=== PATIENT | male | born 1955 | race Caucasian/White ===

== ENCOUNTER 2016-08-24 18:44 | Emergency (ER) | payer BC ==
[~2016-08-24] VITALS: Ht 172.7 cm; Wt 82.7 kg
[~2016-08-24 18:44] MED LIST: ADVIL200 MG PO; EXCEDRIN1 TAB PO; LEVOXYL0.075 MG PO; PRAVACHOL 20MG20 MG PO; VOLTAREN-XR100 MG PO
[2016-08-24 18:48] VITALS: BP 177/95; TEMP 100.8
[2016-08-24 19:31] LABS: INFLUENZA B NEGATIVE
[2016-08-24] MEDS ORDERED: ZOFRAN 4MG T4 MG/TAB PO (19:55)
[2016-08-24] MEDS ORDERED: ZITHROMAX 250M250 MG PO (19:55)
[2016-08-24] MEDS ORDERED: TAMIFLU 75MG75 MG PO (19:55)
[2016-08-24] MEDS ORDERED: NORCO 325 MG-51 TAB PO (19:55)
[2016-08-24 20:13] VITALS: PULSE 94
== END 2016-08-24 20:14 | disposition home or self-care (01) ==
LOC: COL.ER 18:44
PROVIDERS: Emergency Medicine
DX: J20.9 Acute bronchitis, unspecified (principal)

== ENCOUNTER 2019-06-12 13:44 | Emergency (ER) | payer BC ==
[~2019-06-12] VITALS: Ht 172.7 cm; Wt 84.1 kg
[~2019-06-12 13:44] MED LIST changes: +NORCO 325 MG-51 TAB PO; +TAMIFLU 75MG75 MG PO; +ZITHROMAX 250M250 MG PO; +ZOFRAN 4MG T4 MG/TAB PO
[2019-06-12] MEDS ORDERED: PRINIVIL10 MG PO (14:05)
[2019-06-12 14:38] LABS: BASO # 0.1 (0.0-0.2); BASO % 0.4 % (0.0-2.0); EOS # 0.2 (0.0-0.7); EOS % 1.3 % (0-4.0); GRAN % 85.2 % (42.2-75.2); HEMATOCRIT 43.1 % (42.0-52.0); HEMOGLOBIN 13.9 g/dl (13.5-18.0); LYMPH % 6.3 % (20.0-51.0); MEAN CELL VOLUME 80 fl (80.0-100.0); MEAN CORPUSCULAR HEMOGLOBIN 26 pg (27.0-31.0); MEAN CORPUSCULAR HGB CONC 32 g/dl (33.0-37.0); MEAN PLATELET VOLUME 9.2 fl (7.4-10.4); MONO % 6.3 % (1.7-9.3); PLATELET COUNT 384 K/mm3 (130-400); RED BLOOD COUNT 5.37 M/mm3 (4.20-5.60); REDCELL DISTRIBUTION WIDTH-CV 13.2 % (11.5-14.5)
--- NOTE | 2019-06-12 14:40 | NUR ---
Initial visit with patient's : Clinical Research Physician offered support and Spiritual Care to patient's while Conner was undergoing examination and tests in the Emergency Room.
[2019-06-12 14:44] LABS: COLLECTION METHOD CLEAN CATCH
[2019-06-12 14:50] LABS: ALANINE AMINOTRANSFERASE 35 U/L (21-72); ALBUMIN 4.5 gm/dL (3.5-5.0); ALKALINE PHOSPHATASE 74 U/L (50-136); ANION GAP 9 mmol/L (7-16); AST,SGOT 32 U/L (15-37); BILIRUBIN,TOTAL 0.4 mg/dL (0.0-1.0); BLOOD UREA NITROGEN 25 mg/dL (9-20); C-REACTIVE PROTEIN 0.7 mg/dL (0.0-0.9); CARBON DIOXIDE 26 mmol/L (22-30); CHLORIDE 103 mmol/L (98-107); CREATININE, serum 1.21 (0.66-1.25); GLUCOSE 124 mg/dL (74-106); POTASSIUM 4.9 mmol/L (3.4-5.0); SODIUM 138 mmol/L (137-145); TOTAL PROTEIN 7.6 gm/dL (6.4-8.2)
[2019-06-12 14:53] LABS: MUCOUS Present /lpf; PH 5 (5-8); SQUAMOUS EPITHELIAL 0-2 /hpf; URINE APPEARANCE Hazy; URINE BACTERIA None Seen /hpf; URINE BILIRUBIN Negative (NEGATIVE); URINE BLOOD Negative (NEGATIVE); URINE COLOR Yellow; URINE GLUCOSE Negative (NEGATIVE); URINE KETONE Negative (NEGATIVE); URINE LEUKOCYTE ESTERASE Negative (NEGATIVE); URINE NITRATE Negative (NEGATIVE); URINE PROTEIN(semi-quant) Negative (NEGATIVE); URINE RBC 0-2 /hpf; URINE UROBILINOGEN Negative (NEGATIVE)
[2019-06-12 14:59] LABS: TROPONIN-I < 0.012 ng/mL (0.000-0.035)
[2019-06-12 15:40] VITALS: BP 111/71; PULSE 84; TEMP 97.7
== END 2019-06-12 15:40 | disposition home or self-care (01) ==
LOC: COL.ER 13:44
PROVIDERS: Physician Assistant
DX: R55 Syncope and collapse (principal); E78.5 Hyperlipidemia, unspecified; I10 Essential (primary) hypertension; Z87.442 Personal history of urinary calculi

== ENCOUNTER 2020-07-27 14:41 | Inpatient (IN) | payer BC ==
[~2020-07-27] VITALS: Ht 172.8 cm; Wt 90.2 kg
[~2020-07-27 14:41] MED LIST changes: +PRINIVIL10 MG PO
--- NOTE | 2020-09-01 20:00 | NUR ---
Pt. sitting up in bed. Pt. is A&OX3, assessment complete. IV to lt. hand patent, IV fluids infusing per orders. Dressing to lt. knee CDI. Pt. reports pain at a 4. Gave pain meds per orders. Pt. denies further needs, call light within reach.
[2020-09-02] VITALS: BP 133/83; PULSE 93; TEMP 98
[2020-09-02 05:21] VITALS: BP 133/76; PULSE 86; TEMP 97.6
[2020-09-02 06:47] LABS: HEMATOCRIT 37.6 % (42.0-52.0); HEMOGLOBIN 12.3 g/dl (13.5-18.0)
[2020-09-02 07:36] VITALS: BP 135/80; PULSE 84; TEMP 98.3
--- NOTE | 2020-09-02 10:30 | NUR ---
Patient is doing well this morning. Needs reminders to do his leg exercises in bed and where to place his pillow. Student nurse is caring for patient and assisting him with his cares. Patients pain has been well controlled today. No complaints of nausea. Dressing to right knee is C/D/I, some edema to left knee, no pitting. Dressing changed to aqacell by student nurse. No other changes at this time. Call light within reach.
[2020-09-02 12:09] VITALS: BP 146/69; PULSE 95; TEMP 97.7
--- NOTE | 2020-09-02 13:06 | NUR ---
First visit from the java support engineer. No needs right now.
--- NOTE | 2020-09-02 13:38 | NUR ---
SW met with the patient to discuss discharge plan. The patient lives in [place] with his , Clover (ph#[phone]). He reports independence with ADLs and has a cane and walker. The patient's PCP is Dr. Anabel Mcghee and [facility] He reports no difficulties obtaining his meds. The patient does not have a DPOA-HC in EMR, but he states that he does have one completed and that it designates his . The patient plans to return home with his and receive outpatient PT at [facility] upon discharge. No additional needs at this time.
--- NOTE | 2020-09-02 13:50 | NUR ---
Patient working with OT to shower and dress.
[2020-09-02] MEDS ORDERED: ASPI325T6 PO (14:19)
[2020-09-02] MEDS ORDERED: NORCO 325 MG-7.1 TAB PO (14:20)
[2020-09-02] MEDS ORDERED: SENOKOT S 50 MG1 TAB PO (14:23)
[2020-09-02 15:10] VITALS: BP 149/82; PULSE 84; TEMP 98.7
--- NOTE | 2020-09-02 16:05 | NUR ---
Patient is discharging home. Discharge instructions discussed with patient, his was at bedside. Explained when follow up appointment is. Explained his scripts were sent to the pharmacy, patient stated they called him already. He has PT set up at the [facility] office. Copies of discharge instructions sent with patient. He packed up his belongings. All his OT tools were went with him. INT discontinued. Patient walked out via wheel chair by Estella GAONA.
[2020-09-03 09:03] VITALS: BP 125/78; PULSE 73; TEMP 97.5
== END 2020-09-02 16:05 | disposition home or self-care (01) | DRG 470 ==
LOC: SURG 09-01 10:30
PROVIDERS: ADMIT Orthopaedic Surgery
PROC: 0SRD0J9 Replacement of Left Knee Joint with Synthetic Substitute, Cemented, Open Approach (ICD-10-PCS; principal; 2020-09-01 10:30)
DX: M17.12 Unilateral primary osteoarthritis, left knee (principal); E78.00 Pure hypercholesterolemia, unspecified; I10 Essential (primary) hypertension; Z20.822 Contact with and (suspected) exposure to COVID-19
CPT/HCPCS: C1713; C1776; J0690; J1100; J2250; J2405; J2704; J3010; J7120

== ENCOUNTER 2020-09-05 10:39 | Emergency (ER) | payer BC ==
[~2020-09-05] VITALS: Ht 175.3 cm; Wt 88.6 kg
[~2020-09-05 10:39] MED LIST changes: +ASPI325T6 PO; +NORCO 325 MG-7.1 TAB PO; +SENOKOT S 50 MG1 TAB PO
[2020-09-05 11:10] VITALS: TEMP 97.6
[2020-09-05 12:33] VITALS: BP 128/68; PULSE 72
== END 2020-09-05 12:35 | disposition home or self-care (01) ==
LOC: COL.ER 10:39
DX: G89.18 Other acute postprocedural pain (principal); E03.9 Hypothyroidism, unspecified; Z87.442 Personal history of urinary calculi; Z88.1 Allergy status to other antibiotic agents; Z88.6 Allergy status to analgesic agent; Z79.82 Long term (current) use of aspirin; Z79.890 Hormone replacement therapy